=== PATIENT | female | born 1960 | race American Indian/Alaskan Native ===

== ENCOUNTER 2021-04-14 09:09 | Outpatient (CLI) | payer OTHER ==
[2021-04-14 11:28] LABS: Alanine Aminotransferase 9 units/L (7-56); Albumin 4.3 g/dL (3.9-5); Blood Urea Nitrogen 12 mg/dL (7-17); Hemolysis Index 3
[2021-04-14 11:33] LABS: BUN/Creatinine Ratio 17
--- NOTE | 2021-04-17 08:39 | XRay Report ---
CHEST 2 VIEWS INDICATION / CLINICAL INFORMATION: . Chest pain COMPARISON: None available. FINDINGS: SUPPORT DEVICES: None. HEART / MEDIASTINUM: No significant abnormality. LUNGS / PLEURA: No significant pulmonary or pleural abnormality. No pneumothorax. ADDITIONAL FINDINGS: No significant additional findings. IMPRESSION: 1. No acute findings. Signer Name: Clay Campoverde MD Signed: 04/17/2021 8:35 AM Workstation Name: [id number]
--- NOTE | 2021-04-17 08:43 | XRay Report ---
BILATERAL WRIST 4 VIEW(S) INDICATION / CLINICAL INFORMATION: BILATERAL WRIST PAIN COMPARISON: None available. FINDINGS: Right wrist: BONES / JOINT(S): No acute fracture or subluxation. 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 Minimal widening of the scapholunate interval measures 4 mm . Mild arthrosis at the thumb CMC and triscaphe joints. Carpal arcs are intact. SOFT TISSUES: No significant abnormality. ADDITIONAL FINDINGS: None. Left wrist: BONES / JOINT(S): No acute fracture or subluxation. Mild arthrosis at the thumb CMC. SOFT TISSUES: No significant abnormality. ADDITIONAL FINDINGS: None. Signer Name: Clay Campoverde MD Signed: 04/17/2021 8:38 AM Workstation Name: [id number]
== END 2021-04-14 09:10 | disposition home or self-care (01) ==
LOC: XRAY 09:09
PROVIDERS: ATTEND Internal Medicine
DX: M19.031 Primary osteoarthritis, right wrist (principal); R07.9 Chest pain, unspecified; M25.532 Pain in left wrist; F41.9 Anxiety disorder, unspecified; F32.9 Major depressive disorder, single episode, unspecified; K21.9 Gastro-esophageal reflux disease without esophagitis; R41.3 Other amnesia
CPT/HCPCS: 36415; 71046; 80053